=== PATIENT | male | born 1985 | race American Indian/Alaskan Native ===

== ENCOUNTER 2017-08-29 16:13 | Emergency (ER) | payer SELFPAY ==
[2017-08-29 16:21] VITALS: BP 164/105
[2017-08-29] MEDS ORDERED: MOTRIN PO ONE (17:59)
--- NOTE | 2017-08-29 18:04 | Emergency Department Report ---
ED Fever HPI - General Chief Complaint: Fever Stated Complaint: HEMRROIDS/SWOLLEN GLANDS/POSS HIV Time Seen by Provider: 08/29/17 17:59 Source: patient - History of Present Illness Initial Comments: 32 yo male presents with fever, fatigue, night sweats and enlarged neck lymph nodes. He has had fatigue. Symptoms began on Sunday 5 days prior to presentation today. He also has had rectal pain and bright red blood per rectum. He has sex with men only. He had receptive anal intercourse on Sunday. ED Review of Systems ROS: Stated complaint: HEMRROIDS/SWOLLEN GLANDS/POSS HIV Other details as noted in HPI Comment: All other systems reviewed and negative Constitutional: fever, malaise, weakness ENT: throat pain. denies: ear pain Respiratory: cough Cardiovascular: denies: chest pain ED Past Medical Hx - Past Medical History Previous Medical History?: Yes Hx Hypertension: Yes Hx Arthritis: Yes Hx Psychiatric Treatment: Yes (depression) Additional medical history: hematuria - Surgical History Past Surgical History?: Yes Additional Surgical History: lipo x 2 - Social History Smoking Status: Current Every Day Smoker Substance Use Type: Alcohol, Marijuana, Methamphetamines - Medications Home Medications: Home Medications Medication Instructions Recorded Confirmed Last Taken Type Docusate Sodium [Colace] 100 mg PO BID 14 Days capsule 08/29/17 Unknown Rx HYDROcodone/APAP 10-325 [[place] 1 each PO Q6HR PRN #10 tablet 08/29/17 Unknown Rx 10/325] ED Physical Exam - General Limitations: No Limitations General appearance: alert, in no apparent distress, other (healthy, well- appearing, warm to touch) - Head Head exam: Present: atraumatic, normocephalic - Eye Eye exam: Present: normal appearance. Absent: conjunctival injection - ENT ENT exam: Present: mucous membranes moist, other (mild tonsillar edema without exudates) - Neck Neck exam: Present: normal inspection, lymphadenopathy (bilateral cervical lymphadenopathy) - Respiratory Respiratory exam: Present: normal lung sounds bilaterally. Absent: respiratory distress, wheezes, rales, rhonchi - Cardiovascular Cardiovascular Exam: Present: regular rate, normal rhythm. Absent: bradycardia , tachycardia, normal heart sounds, systolic murmur, diastolic murmur, rubs, gallop - GI/Abdominal GI/Abdominal exam: Present: soft, normal bowel sounds. Absent: distended, tenderness, guarding, rebound - Rectal Rectal exam: Present: normal inspection, normal rectal tone. Absent: hemorrhoids, mass - Extremities Exam Extremities exam: Present: normal inspection, full ROM. Absent: tenderness - Back Exam Back exam: Present: normal inspection - Neurological Exam Neurological exam: Present: alert, oriented X3 - Psychiatric Psychiatric exam: Present: normal affect, normal mood - Skin Skin exam: Present: warm, dry, intact, normal color. Absent: rash ED Course Vital Signs 08/29/17 16:15 Temperature 101 F H Pulse Rate 111 H Respiratory 18 Rate Blood Pressure 164/105 O2 Sat by Pulse 98 Oximetry ED Medical Decision Making - Radiology Data Radiology results: image reviewed no infiltrate no acute process no PTX normal size heart - Medical Decision Making Mr. Perdue presents with febrile illness. +rapid strep, treated with Bicillin LA. He is concerned for possibility of HIV due to promiscuous lifestyle. He has f/u appt tomorrow with new PCP. I suspect anal fissure as cause of rectal pain and rectal bleeding Rx: norco and colace dc'd home Critical care attestation.: If time is entered above; I have spent that time in minutes in the direct care of this critically ill patient, excluding procedure time. ED Disposition Clinical Impression: Anal fissure, Acute streptococcal pharyngitis Disposition: DC- TO HOME OR SELFCARE Is pt being admited?: No Does the pt Need Aspirin: No Condition: Stable Instructions: Anal Fissure (ED), Strep Throat (ED) Prescriptions: Docusate Sodium [Colace] 100 mg PO BID 14 Days capsule HYDROcodone/APAP 10-325 [[place] 10/325] 1 each PO Q6HR PRN #10 tablet PRN Reason: Pain Forms: Work/School Release Form(ED) Time of Disposition: 19:18
--- NOTE | 2017-08-29 19:18 | XRay Report ---
FINAL REPORT EXAM: XR CHEST ROUTINE 2V HISTORY: fever cough TECHNIQUE: Two view chest PA and lateral PRIORS: None. FINDINGS: Cardiac and mediastinal contours are unremarkable. No focal pulmonary infiltrate is identified. No pleural fluid collection seen. Pulmonary vasculature is unremarkable. IMPRESSION: Negative two-view chest
[2017-08-29] MEDS ORDERED: BICILLIN L-A IM ONE (19:38)
== END 2017-08-29 20:41 | disposition home or self-care (01) ==
LOC: ED 16:13
DX: J02.0 Streptococcal pharyngitis (principal); K60.2 Anal fissure, unspecified; I10 Essential (primary) hypertension; F17.200 Nicotine dependence, unspecified, uncomplicated; F12.10 Cannabis abuse, uncomplicated
CPT/HCPCS: 71046; 87430; 96372; 99284; J0561

== ENCOUNTER 2018-10-16 11:47 | Emergency (ER) | payer BC ==
--- NOTE | 2018-10-16 11:56 | Emergency Department Report ---
Blank Doc - Documentation Documentation: This is a 33-year-old male that presents with nausea and diarrhea. Also stated has URI symptoms. HIV+with last CD4 count undetectable. This initial assessment/diagnostic orders/clinical plan/treatment(s) is/are subject to change based on patient's health status, clinical progression and re- assessment by fellow clinical providers in the ED. Further treatment and workup at subsequent clinical providers discretion. Patient/guardians urged not to elope from the ED as their condition may be serious if not clinically assessed and managed. Initial orders include: 1- Patient sent to [facility] for further evaluation and treatment 2- labs 3- UA
--- NOTE | 2018-10-16 13:10 | XRay Report ---
ROUTINE CHEST, TWO VIEWS: HISTORY: Cough. The trachea, heart, mediastinal contour, lung khalil and bony thorax are unremarkable. IMPRESSION: Unremarkable chest x-ray.
[2018-10-16 13:23] LABS: Basophils # (Auto) 0.1 K/mm3 (0.0-0.1); Basophils % (Auto) 0.5 % (0.0-1.8); Eosinophils % (Auto) 0.3 % (0.0-4.3); Hematocrit 42.3 % (35.5-45.6); Hemoglobin 14.1 gm/dl (11.8-15.2); Lymphocytes # (Auto) 2.6 K/mm3 (1.2-5.4); Lymphocytes % (Auto) 19.2 % (13.4-35.0); Mean Corpuscular HGB Conc 33 % (32-34); Mean Corpuscular Volume 82 fl (84-94); Monocytes # (Auto) 1.6 K/mm3 (0.0-0.8); Monocytes % (Auto) 11.9 % (0.0-7.3); Platelet Count 272 K/mm3 (140-440); Red Blood Count 5.15 M/mm3 (3.65-5.03)
[2018-10-16 13:48] LABS: Alanine Aminotransferase 14 units/L (7-56); Albumin 4.2 g/dL (3.9-5); BUN/Creatinine Ratio 12; Blood Urea Nitrogen 12 mg/dL (9-20); Calcium 9.2 mg/dL (8.4-10.2); Hemolysis Index 8
[2018-10-16 13:49] LABS: Bilirubin,Direct < 0.2 mg/dL (0-0.2)
[2018-10-16] MEDS ORDERED: MORPHINE IV ONE (13:52)
[2018-10-16] MEDS ORDERED: NACL 0.9% 1000 ML 1,000 ML IV ONE (13:52)
--- NOTE | 2018-10-16 14:56 | Emergency Department Report ---
ED General Adult HPI - General Chief complaint: Upper Respiratory Infection Stated complaint: ZEYNEP/GROWTH BEHIND SCROTUM Time Seen by Provider: 10/16/18 11:54 Source: patient Mode of arrival: Ambulatory Limitations: No Limitations - History of Present Illness Initial comments: 33-year-old male history of HIV presents to the ED with 5 day history of chills, headache, cough, body aches. Patient states he didn't receive flu and pneumonia vaccine this winter. Patient is currently on HIV antivirals, states viral load is undetected. Patient states he shaved his scrotum a few days ago. Patient reports since shaving, he has developed sores on his scrotum and swollen nodes in his groin. Patient states this has happened before after shaving, however at that time it was only one open area on his scrotum. He states his physician and gave him clindamycin at that time, which helped. Patient has multiple, painful areas on his scrotum currently. States he has tested positive for herpes, however, states he has never had genital outbreak. Not currently on valtrex. Patient states scrotum is painful and he is having difficulty sitting and walking due to the pain. -: days(s) (5) Location: genitals Radiation: non-radiation Severity scale (0 -10): 10 Quality: aching Consistency: constant Improves with: immobilization Worsens with: other (sitting, walking) Associated Symptoms: cough, fever/chills, headaches. denies: nausea/vomiting - Related Data Previous Rx's Medication Instructions Recorded Last Taken Type Ciprofloxacin HCl [Cipro] 500 mg PO BID #12 tablet 09/14/17 Unknown Rx Docusate Sodium [Colace CAP] 100 mg PO BID 30 Days capsule 09/14/17 Unknown Rx HYDROcodone/APAP 10-325 [[place] 1 each PO Q6HR PRN #10 tablet 09/14/17 Unknown Rx 10-325 mg TAB] Polyethylene Glycol 3350 [Miralax 17 gm PO QDAY #30 packet 09/14/17 Unknown Rx 3350] metroNIDAZOLE [Flagyl] 500 mg PO Q8HR #18 tablet 09/14/17 Unknown Rx Clindamycin [Clindamycin CAP] 300 mg PO Q8H 10 Days #30 cap 10/16/18 Unknown Rx Naproxen [Naprosyn] 500 mg PO BID PRN #30 tablet 10/16/18 Unknown Rx Valacyclovir HCl [Valtrex] 1,000 mg PO BID 10 Days #60 tablet 10/16/18 Unknown Rx oxyCODONE /ACETAMINOPHEN [Percocet 1 tab PO Q6HR PRN #10 tablet 10/16/18 Unknown Rx 5/325] Allergies Allergy/AdvReac Type Severity Reaction Status Date / Time No Known Allergies Allergy Verified 09/12/17 22:29 ED Review of Systems ROS: Stated complaint: ZEYNEP/GROWTH BEHIND SCROTUM Other details as noted in HPI Comment: All other systems reviewed and negative Constitutional: chills Respiratory: cough Gastrointestinal: diarrhea. denies: abdominal pain, nausea, vomiting Genitourinary: other (reports scrotal lesions present) Musculoskeletal: myalgia Neurological: headache ED Past Medical Hx - Past Medical History Previous Medical History?: Yes Hx Hypertension: Yes Hx Congestive Heart Failure: No Hx Diabetes: No Hx Arthritis: Yes Hx Psychiatric Treatment: Yes (depression) Hx Asthma: No Hx COPD: No Hx HIV: Yes Additional medical history: hematuria - Surgical History Past Surgical History?: Yes Additional Surgical History: lipo x 2 - Social History Smoking Status: Current Every Day Smoker Substance Use Type: Alcohol, Marijuana - Medications Home Medications: Home Medications Medication Instructions Recorded Confirmed Last Taken Type Ciprofloxacin HCl [Cipro] 500 mg PO BID #12 tablet 09/14/17 Unknown Rx Docusate Sodium [Colace CAP] 100 mg PO BID 30 Days capsule 09/14/17 Unknown Rx HYDROcodone/APAP 10-325 [[place] 1 each PO Q6HR PRN #10 tablet 09/14/17 Unknown Rx 10-325 mg TAB] Polyethylene Glycol 3350 [Miralax 17 gm PO QDAY #30 packet 09/14/17 Unknown Rx 3350] metroNIDAZOLE [Flagyl] 500 mg PO Q8HR #18 tablet 09/14/17 Unknown Rx Clindamycin [Clindamycin CAP] 300 mg PO Q8H 10 Days #30 cap 10/16/18 Unknown Rx Naproxen [Naprosyn] 500 mg PO BID PRN #30 tablet 10/16/18 Unknown Rx Valacyclovir HCl [Valtrex] 1,000 mg PO BID 10 Days #60 tablet 10/16/18 Unknown Rx oxyCODONE /ACETAMINOPHEN [Percocet 1 tab PO Q6HR PRN #10 tablet 10/16/18 Unknown Rx 5/325] ED Physical Exam - General Limitations: No Limitations General appearance: alert, in no apparent distress - Head Head exam: Present: atraumatic, normocephalic - Eye Eye exam: Present: normal appearance - ENT ENT exam: Present: mucous membranes moist - Neck Neck exam: Present: normal inspection - Respiratory Respiratory exam: Present: normal lung sounds bilaterally. Absent: respiratory distress - Cardiovascular Cardiovascular Exam: Present: normal rhythm, tachycardia - GI/Abdominal GI/Abdominal exam: Present: soft. Absent: distended, tenderness - External exam: Present: other (multiple small, tender ulcerations to scrotum with one larger area draining; no edema present; no erythema; no ecchymosis; no crepitus; no necrosis present; no crepitus palpated; tender lymphadenopathy present in groin) - Neurological Exam Neurological exam: Present: alert, oriented X3 - Psychiatric Psychiatric exam: Present: normal affect, normal mood - Skin Skin exam: Present: warm ED Course Vital Signs 10/16/18 10/16/18 10/16/18 11:54 13:25 15:54 Temperature 99.6 F 102.6 F H Pulse Rate 102 H 99 H Respiratory 16 18 18 Rate Blood Pressure 158/77 Blood Pressure 120/76 [Left] O2 Sat by Pulse 99 97 Oximetry 10/16/18 17:00 Temperature 101.1 F H Pulse Rate 91 H Respiratory 16 Rate Blood Pressure Blood Pressure 109/60 [Left] O2 Sat by Pulse 97 Oximetry ED Medical Decision Making - Lab Data Result diagrams: 10/16/18 13:06 10/16/18 13:06 - Radiology Data Radiology results: report reviewed, image reviewed - Medical Decision Making - possibly secondary cellulitis with primary herpes outbreak - does not have appearance of Donaldo's gangrene - pt febrile, however, lactate normal. - BP and HR normal - CT shows no abscess present - will d/c w/ rx for clindamycin and valtrex - pt states he can f/u w/ PCP on Sunday, in 5 days - return precautions given - Differential Diagnosis abscess, herpes, cellulitis, pneumonia Critical care attestation.: If time is entered above; I have spent that time in minutes in the direct care of this critically ill patient, excluding procedure time. ED Disposition Clinical Impression: Cellulitis Disposition: - TO HOME OR SELFCARE Is pt being admited?: No Condition: Stable Instructions: Genital Herpes Simplex (ED), Cellulitis (ED) Prescriptions: Clindamycin [Clindamycin CAP] 300 mg PO Q8H 10 Days #30 cap Naproxen [Naprosyn] 500 mg PO BID PRN #30 tablet PRN Reason: Pain, Moderate (4-6) oxyCODONE /ACETAMINOPHEN [Percocet 5/325] 1 tab PO Q6HR PRN #10 tablet PRN Reason: Pain Valacyclovir HCl [Valtrex] 1,000 mg PO BID 10 Days #60 tablet Referrals: PRIMARY CARE, [Referring] - 3-5 Days Forms: Work/School Release Form(ED) Time of Disposition: 16:51
--- NOTE | 2018-10-16 15:38 | Cat Scan Report ---
CT PELVIS WITH CONTRAST History: Groin and scrotal wounds, rule out abscess. Technique: Helical CT following IV contrast. Sagittal and coronal reformatted images. Findings: There is nonspecific skin thickening in the perineum. There is no obvious abscess, mass or soft tissue gas. This may represent a cellulitis. The visualized bowel loops, appendix, bladder and prostate and are unremarkable. There is no evidence for fluid, abscess or bulky adenopathy. Reactive bilateral inguinal lymph nodes are noted. The bony pelvis is intact. Chronic L5 pars defects, grade 2 anterolisthesis of L5 respect to the sacrum and advanced degenerative changes at L5-S1 are noted. IMPRESSION: Probable cellulitis. No abscess is visualized. Abnormal L5-S1 disc level. See above.
[2018-10-16] MEDS ORDERED: CLEOCIN 900 MG/50 mL 900 MG/50 ML BAG IV ONE (15:46)
[2018-10-16] MEDS ORDERED: TYLENOL PO ONE (15:55)
[2018-10-16 16:33] LABS: Bilirubin,Urine NEG (Negative); Blood,Urine NEG (Negative); Color,Urine Yellow (Yellow); Mucus,Urine FEW /HPF; Protein,Urine <15 mg/dL mg/dL (Negative); Urobilinogen,Urine < 2.0 mg/dL (<2.0); WBC,Urine < 1.0 /HPF (0.0-6.0)
[2018-10-16 17:10] VITALS: BP 109/60
== END 2018-10-16 17:09 | disposition home or self-care (01) ==
LOC: ED 11:47
DX: N49.2 Inflammatory disorders of scrotum (principal); R05 Cough; R50.9 Fever, unspecified; M79.18 Myalgia, other site; I10 Essential (primary) hypertension; M19.90 Unspecified osteoarthritis, unspecified site; F17.200 Nicotine dependence, unspecified, uncomplicated; F12.10 Cannabis abuse, uncomplicated
CPT/HCPCS: 36415; 71046; 72193; 80048; 80076; 81001; 82140; 83690; 85025; 87040; 96365; 96375; 99285; J2270; J7030; Q9967

== ENCOUNTER 2018-10-18 18:33 | Emergency (ER) | payer BC ==
[2018-10-18 20:01] VITALS: BP 148/71
[2018-10-18 21:13] LABS: Hematocrit 38.9 % (35.5-45.6); Hemoglobin 12.9 gm/dl (11.8-15.2); Mean Corpuscular HGB Conc 33 % (32-34); Mean Corpuscular Hemoglobin 27 pg (28-32); Mean Corpuscular Volume 82 fl (84-94); Platelet Count 284 K/mm3 (140-440); Red Blood Count 4.74 M/mm3 (3.65-5.03); Red Cell Distribution Width 15.8 % (13.2-15.2)
[2018-10-18 21:33] LABS: Alanine Aminotransferase 19 units/L (7-56); Albumin 3.7 g/dL (3.9-5); BUN/Creatinine Ratio 13; Blood Urea Nitrogen 14 mg/dL (9-20); Calcium 8.8 mg/dL (8.4-10.2); Hemolysis Index 0
[2018-10-18 21:55] LABS: Basophils % (Manual) 0 % (0.0-1.8); Total Cells Counted 100
[2018-10-18 21:56] LABS: Large Platelets Few; Platelet Estimate Consistent w Auto
[2018-10-18 21:57] LABS: Anisocytosis Few; Ovalocytes Rare; Target Cells Few
== END 2018-10-19 00:05 | disposition left against medical advice (07) ==
LOC: ED 18:33
DX: R20.0 Anesthesia of skin (principal); Z53.21 Procedure and treatment not carried out due to patient leaving prior to being seen by health care provider
CPT/HCPCS: 36415; 80053; 85007; 85025